=== PATIENT | female | born 1935 | race Caucasian/White ===

== ENCOUNTER 2018-04-17 17:57 | Emergency (ER) | payer MEDICARE, OTHER ==
[~2018-04-17] VITALS: Ht 170.2 cm; Wt 54.5 kg
[2018-04-17] MEDS ORDERED: DICL2100G TP (18:56)
[2018-04-17] MEDS ORDERED: PERCT10 PO (18:56)
[2018-04-17] MEDS ORDERED: DABI75CA3 PO (18:56)
[2018-04-17] MEDS ORDERED: OLOP5DRO14 OU (18:56)
[2018-04-17] MEDS ORDERED: POTA10TA PO (18:56)
[2018-04-17] MEDS ORDERED: CITA10TA68 PO (18:56)
[2018-04-17] MEDS ORDERED: TRAZ-184 PO (18:56)
[2018-04-17] MEDS ORDERED: MIRT30 PO (18:56)
[2018-04-17] MEDS ORDERED: roxanol PO (18:56)
[2018-04-17] MEDS ORDERED: PANT20TA PO (18:56)
[2018-04-17] MEDS ORDERED: SIMV-261 PO (18:56)
[2018-04-17] MEDS ORDERED: LORA-192 PO (18:56)
[2018-04-17] MEDS ORDERED: HYOS0.122 PO (18:56)
[2018-04-17] MEDS ORDERED: LEVO75TA10 PO (18:56)
[2018-04-17] MEDS ORDERED: MORP10SO3 PO (19:04)
[2018-04-17] MEDS ORDERED: LORA0.5T2 PO (19:04)
[2018-04-17] MEDS ORDERED: PANT40TA25 PO (19:04)
[2018-04-17] MEDS ORDERED: DABI150 PO (19:04)
[2018-04-17 21:03] LABS: BASOPHILS % (AUTO) 0.5 % (0.0-2.0); EOSINOPHILS % (AUTO) 2.1 % (1.0-6.0); HEMATOCRIT 32.8 % (36-46); LYMPHOCYTES # (AUTO) 2.3 K/uL (1.0-4.8); LYMPHOCYTES % (AUTO) 43.2 % (22.0-44.0); MEAN CORPUSCULAR HEMOGLOBIN 30.3 pg (26.0-34.0); MEAN CORPUSCULAR HGB CONC 33.5 G/dL (31.0-37.0); MEAN CORPUSCULAR VOLUME 91 fL (80-100); MONOCYTES # (AUTO) 0.4 K/uL (0.1-1.0); NEUTROPHILS # (AUTO) 2.5 K/uL (1.8-7.7); NEUTROPHILS % (AUTO) 47.2 % (40.0-70.0); PLATELET COUNT (AUTO) 198 K/uL (150-450); RED BLOOD CELL COUNT(AUTO) 3.62 MIL/uL (4.00-5.20); RED CELL DISTRIBUTION WIDTH 13.8 % (11.5-14.5)
[2018-04-17 21:29] LABS: ALANINE AMINOTRANSFERASE 35 U/L (12-78); ALBUMIN 3.6 g/dL (3.4-5.0); ALKALINE PHOSPHATASE 61 U/L (46-116); ANION GAP 6 mmol/L (8-16); ASPARTATE AMINOTRANSFERASE 34 U/L (15-37); BILIRUBIN,TOTAL 0.1 mg/dL (0.1-1.0); CALCIUM, TOTAL 8.9 mg/dL (8.8-10.5); CARBON DIOXIDE 33 mmol/L (22-29); CHLORIDE 101 mmol/L (98-107); CREATININE 1.03 mg/dL (0.60-1.30); GLOMERULAR FILTR. RATE CALC 51 mL/min (>60); GLUCOSE,RANDOM 102 mg/dL (70-110); POTASSIUM 3.8 mmol/L (3.5-5.1); SODIUM SERUM 140 mmol/L (136-145); TOTAL PROTEIN, SERUM 7.2 g/dL (6.4-8.2)
[2018-04-17 21:38] LABS: SALICYLATE < 2.8 mg/dL (2.8-20.0)
[2018-04-17 21:40] LABS: ACETAMINOPHEN < 2 mcg/mL (10-30)
[2018-04-17 21:43] LABS: APPEARANCE,URINE CLEAR (CLEAR); BILIRUBIN,URINE NEGATIVE (NEGATIVE); GLUCOSE, URINE (UA) NEGATIVE (NEGATIVE); KETONES,URINE NEGATIVE (NEGATIVE); LEUKOCYTE ESTERASE ,URINE NEGATIVE (NEGATIVE); NITRATE,URINE NEGATIVE (NEGATIVE); OCCULT BLOOD,URINE NEGATIVE (NEGATIVE); PH,URINE 6.5 (5.0-8.0); PROTEIN,URINE NEGATIVE (NEGATIVE); UROBILINOGEN,URINE 0.2 mg/dL (<=1.0)
[2018-04-17 21:48] LABS: AMPHET/METH SCREEN,URINE NEGATIVE (NEGATIVE); BARBITURATE SCREEN, URINE NEGATIVE (NEGATIVE); BENZODIAZEPINES SCREEN,URINE NEGATIVE (NEGATIVE); CANNABINOID SCREEN,URINE NEGATIVE (NEGATIVE); COCAINE SCREEN,URINE NEGATIVE (NEGATIVE); METHADONE SCREEN, URINE NEGATIVE (NEGATIVE); OPIATE SCREEN,URINE POSITIVE (NEGATIVE)
[2018-04-17 21:55] VITALS: BP 141/79
[2018-04-17 22:05] LABS: UREA NITROGEN, BLOOD 21 mg/dL (7-18)
[2018-04-17 22:06] LABS: PHENCYCLIDINE SCREEN,URINE NEGATIVE (NEGATIVE)
[2018-04-17 22:19] LABS: BACTERIA,URINE None Seen /HPF (None Seen); RBC,URINE 0-2 /HPF (0-2); SQUAMOUS EPITHELIAL CELL,UR Few /LPF (None Seen); WBC,URINE 0-2 /HPF (0-5)
[2018-04-17 22:20] LABS: CALCIUM OXALATE CRYSTALS,UR Rare /LPF (None Seen)
== END 2018-04-17 22:29 | disposition home or self-care (01) ==
LOC: EMS 18:01
DX: Z04.6 Encounter for general psychiatric examination, requested by authority (principal); F32.9 Major depressive disorder, single episode, unspecified; E78.00 Pure hypercholesterolemia, unspecified; I10 Essential (primary) hypertension; E03.9 Hypothyroidism, unspecified; F03.90 Unspecified dementia, unspecified severity, without behavioral disturbance, psychotic disturbance, mood disturbance, and anxiety; G47.00 Insomnia, unspecified
CPT/HCPCS: 36415; 80053; 80307; 81001; 85025; 99285; G0480 ×2; G0481